=== PATIENT | female | born 2000 | race Two or more races ===

== ENCOUNTER 2024-05-15 13:42 | Outpatient (CLI) | payer OTHER | END 2024-05-15 13:43 | disposition home or self-care (01) | LOC: PRENATAL 13:42 | PROVIDERS: ATTEND Obstetrics & Gynecology Maternal & Fetal Medicine | DX: O36.80X0 Pregnancy with inconclusive fetal viability, not applicable or unspecified (principal); Z36.82 Encounter for antenatal screening for nuchal translucency; Z14.8 Genetic carrier of other disease; Z3A.12 12 weeks gestation of pregnancy ==

== ENCOUNTER → 2024-07-09 15:29 | Outpatient (CLI) | payer OTHER | END | disposition home or self-care (01) | LOC: PRENATAL 15:29 | PROVIDERS: ATTEND Obstetrics & Gynecology Maternal & Fetal Medicine | DX: O44.00 Complete placenta previa NOS or without hemorrhage, unspecified trimester (principal); Z3A.20 20 weeks gestation of pregnancy ==

== ENCOUNTER 2024-08-04 20:54 | Emergency (ER) | payer OTHER ==
[~2024-08-04] VITALS: Ht 160 cm; Wt 75.3 kg
[2024-08-05] MEDS ORDERED: ACETAMINOPHEN 500 MG GEL..CAP PO STA (01:34)
[2024-08-05] MEDS ORDERED: ACETAMINOPHEN 500 MG GEL..CAP PO ONE ×2 (01:39→05:03)
[2024-08-05 02:07] LABS: BASO % 0.5 % (0.1-1.2); EOS # 0.71 (0.04-0.54); EOS % 6.2 % (0.7-7.0); HEMATOCRIT 32.4 % (34.1-44.9); HEMOGLOBIN 11.1 g/dL (11.2-15.7); LYMPH # 1.95 (1.18-3.74); LYMPH % 16.9 % (19.3-53.1); MEAN CORPUSCULAR HEMOGLOBIN 31.6 pg (25.6-32.2); MONO # 0.66 (0.24-0.82); MONO % 5.7 % (4.7-12.5); NEUT # 8.07 (1.56-6.13); NEUT % 69.9 % (34.0-71.1); PLATELET COUNT 154 K/uL (163-369); RED BLOOD COUNT 3.51 M/uL (3.93-5.22); RED CELL DISTRIBUTION WIDTH 12.9 % (11.6-14.4)
[2024-08-05 02:29] LABS: CALCIUM 8.3 mg/dL (8.5-10.1); CREATININE SERUM 0.36 mg/dL (0.55-1.02); GFR 217.89; POTASSIUM 3.86 mEq/L (3.5-5.1)
[2024-08-05 03:12] LABS: PH,URINE 6.5 (5.0-8.0); URINE APPEARANCE Clear; URINE BILIRRUBIN Negative (NEGATIVE); URINE BLOOD Negative; URINE COLOR Yellow; URINE GLUCOSE Negative (NEGATIVE); URINE KETONE Negative (NEGATIVE); URINE LEUKOCYTE Trace; URINE NITRATE Negative; URINE PROTEIN Negative (NEGATIVE)
[2024-08-05 03:16] LABS: URINE BACTERIA 3729.3 uL (0.0-1933); URINE WBC 51.4 uL (0.0-23.2)
[2024-08-05 03:46] LABS: URINE CAST 0.29 uL (0.0-1.40); URINE RBC 1.7 uL (0.0-20.8)
[2024-08-05] MEDS ORDERED: CEFTRIAXONE SODIUM 1,000 MG VIAL IM STA (05:01)
[2024-08-05] MEDS ORDERED: CEFTRIAXONE SODIUM 1,000 MG VIAL ONE (05:03)
[2024-08-05] MEDS ORDERED: CEPHALEXIN500 MG PO (05:03)
== END 2024-08-05 05:07 ==
LOC: ER 21:19
PROVIDERS: General Practice
DX: Z34.90 Encounter for supervision of normal pregnancy, unspecified, unspecified trimester (principal); Z3A.23 23 weeks gestation of pregnancy; N39.0 Urinary tract infection, site not specified; R51.9 Headache, unspecified

== ENCOUNTER → 2024-10-05 13:56 | Outpatient (CLI) | payer OTHER ==
[~2024-10-05 13:56] MED LIST: CEPHALEXIN500 MG PO
== END | disposition home or self-care (01) ==
LOC: PRENATAL 13:56
PROVIDERS: ATTEND Obstetrics & Gynecology Maternal & Fetal Medicine
DX: O26.849 Uterine size-date discrepancy, unspecified trimester (principal); O36.8199 Decreased fetal movements, unspecified trimester, other fetus; Z3A.32 32 weeks gestation of pregnancy

== ENCOUNTER 2024-11-18 17:07 | Inpatient (IN) | payer OTHER ==
[~2024-11-18] VITALS: Ht 160 cm; Wt 88.9 kg
[2024-11-18 16:09] VITALS: BP 150/88
[2024-11-18] MEDS ORDERED: PRENATABS RX T1 EACH PO (17:42)
[2024-11-18] MEDS ORDERED: RINGERS SOLUTION,LACTATED 1,000 ML IV SCH (17:45)
[2024-11-18 18:09] LABS: BASO % 0.6 % (0.1-1.2); EOS # 0.30 (0.04-0.54); EOS % 2.8 % (0.7-7.0); LYMPH # 1.43 (1.18-3.74); LYMPH % 13.2 % (19.3-53.1); MEAN PLATELET VOLUME 14.10 fl (9.4-12.4); MONO # 0.72 (0.24-0.82); MONO % 6.7 % (4.7-12.5); NEUT # 8.23 (1.56-6.13); NEUT % 76.2 % (34.0-71.1); RED CELL DISTRIBUTION WIDTH 13.2 % (11.6-14.4)
[2024-11-18 18:36] LABS: ALT/SGPT 19.0 U/L (12-78); AST/SGOT 20.0 U/L (15-37); BILIRUBIN TOTAL 0.48 mg/dL (0.3-1.2); BUN CREA RATIO 16.0 (7.0-25.0); CREATININE SERUM 0.61 mg/dL (0.55-1.02); GFR 118.56; GLOBULINA 3.1 G/DL (2.4-3.5); GLUCOSE FASTING 67.0 mg/dL (65-100); OSMOLALITY SERUM 277.0 MOSM/KG (275-295)
[2024-11-18 18:51] LABS: URINE APPEARANCE Clear; URINE BILIRRUBIN Small (NEGATIVE); URINE BLOOD Negative; URINE COLOR Dark Yellow; URINE GLUCOSE Negative (NEGATIVE); URINE LEUKOCYTE Trace; URINE NITRATE Negative; URINE UROBILINOGEN 1.0 E.U./dl
[2024-11-18 18:52] LABS: URINE BACTERIA 1612.7 uL (0.0-1933); URINE EPITHELIAL CELLS 43.1 uL (0.0-38.8); URINE RBC 9.6 uL (0.0-20.8); URINE WBC 10.2 uL (0.0-23.2)
[2024-11-18 19:04] LABS: URINE CAST 1.31 uL (0.0-1.40); URINE KETONE 40 (NEGATIVE); URINE PROTEIN 300 (NEGATIVE)
[2024-11-18 19:39] VITALS: BP 144/89
[2024-11-18 23:44] VITALS: BP 130/77
[2024-11-19] VITALS (7 sets, daily range): BP systolic 122–147; BP diastolic 79–89; O2SAT 99
[2024-11-19] MEDS ORDERED: MISOPROSTOL 25 MCG/4 ML GEL.W.APPL VAG STA ×2 (16:46→22:12)
[2024-11-20] VITALS (9 sets, daily range): BP systolic 123–151; BP diastolic 70–90; O2SAT 98
[2024-11-20] MEDS ORDERED: MORPHINE SULFATE 4 MG/ML CARTRIDGE IV ONE (05:15)
[2024-11-20] MEDS ORDERED: MORPHINE SULFATE 4 MG/ML CARTRIDGE IV STA (08:53)
[2024-11-20] MEDS ORDERED: OXYTOCIN 500 ML IV SCH (09:00)
[2024-11-20] MEDS ORDERED: CHLORHEXIDINE GLUCONATE 120 ML BOTTLE TOP ONE (13:15)
[2024-11-20] MEDS ORDERED: OXYTOCIN 10 UNITS/ML VIAL IM STA (13:15)
[2024-11-20] MEDS ORDERED: OXYTOCIN 1,000 ML IV SCH (13:15)
[2024-11-20 16:07] LABS: BASO % 0.2 % (0.1-1.2); EOS # 0.03 (0.04-0.54); EOS % 0.1 % (0.7-7.0); LYMPH # 0.53 (1.18-3.74); LYMPH % 1.7 % (19.3-53.1); MEAN PLATELET VOLUME 13.50 fl (9.4-12.4); MONO # 1.71 (0.24-0.82); MONO % 5.5 % (4.7-12.5); NEUT # 28.52 (1.56-6.13); NEUT % 91.4 % (34.0-71.1); RED CELL DISTRIBUTION WIDTH 13.3 % (11.6-14.4)
[2024-11-21] VITALS: BP 126/78
[2024-11-21 10:11] VITALS: BP 140/88; BP 96/60
[2024-11-21 16:00] VITALS: BP 124/80
[2024-11-21 20:00] VITALS: BP 144/92
[2024-11-22] VITALS: BP 140/82
[2024-11-22 04:00] VITALS: BP 140/90
[2024-11-22 08:00] VITALS: BP 138/87
== END 2024-11-22 15:48 | disposition home or self-care (01) | DRG 807 ==
LOC: OBS/DEL 17:07 → LDR 11-19 13:31 → OB/GYN 11-20 13:25
PROVIDERS: ADMIT Obstetrics & Gynecology; ATTEND Obstetrics & Gynecology
PROC: 3E0P7VZ Introduction of Hormone into Female Reproductive, Via Natural or Artificial Opening (ICD-10-PCS; 2024-11-19)
PROC: 4A1HXCZ Monitoring of Products of Conception, Cardiac Rate, External Approach (ICD-10-PCS; 2024-11-19)
PROC: 10E0XZZ Delivery of Products of Conception, External Approach (ICD-10-PCS; principal; 2024-11-20)
PROC: 0KQM0ZZ Repair Perineum Muscle, Open Approach (ICD-10-PCS; 2024-11-20)
PROC: 3E033VJ Introduction of Other Hormone into Peripheral Vein, Percutaneous Approach (ICD-10-PCS; 2024-11-20)
DX: O70.1 Second degree perineal laceration during delivery (principal); Z37.0 Single live birth; Z3A.39 39 weeks gestation of pregnancy

== ENCOUNTER 2024-11-23 23:25 | Emergency (ER) | payer OTHER ==
[~2024-11-23] VITALS: Ht 160 cm; Wt 85.3 kg
[~2024-11-23 23:25] MED LIST changes: +PRENATABS RX T1 EACH PO
[2024-11-24] MEDS ORDERED: 0.9 % SODIUM CHLORIDE 1,000 ML IV STA (00:29)
[2024-11-24] MEDS ORDERED: LABETALOL HCL 20MG/4ML SYRINGE IV STA ×3 (00:30→04:52)
[2024-11-24 01:09] LABS: BASO % 0.8 % (0.1-1.2); EOS # 0.65 (0.04-0.54); EOS % 6.1 % (0.7-7.0); LYMPH # 1.65 (1.18-3.74); LYMPH % 15.6 % (19.3-53.1); MEAN PLATELET VOLUME 12.00 fl (9.4-12.4); MONO # 0.55 (0.24-0.82); MONO % 5.2 % (4.7-12.5); NEUT # 7.54 (1.56-6.13); NEUT % 71.4 % (34.0-71.1); RED CELL DISTRIBUTION WIDTH 13.6 % (11.6-14.4)
[2024-11-24 01:42] LABS: URINE APPEARANCE Clear; URINE BILIRRUBIN Negative (NEGATIVE); URINE BLOOD Large; URINE COLOR Yellow; URINE GLUCOSE Negative (NEGATIVE); URINE KETONE Negative (NEGATIVE); URINE LEUKOCYTE Small; URINE NITRATE Negative; URINE UROBILINOGEN 1.0 E.U./dl
[2024-11-24 01:46] LABS: URINE BACTERIA 106.7 uL (0.0-1933); URINE EPITHELIAL CELLS 11.0 uL (0.0-38.8); URINE RBC 166.6 uL (0.0-20.8); URINE WBC 160.4 uL (0.0-23.2)
[2024-11-24 01:48] LABS: URINE CAST 0.14 uL (0.0-1.40); URINE PROTEIN 100 (NEGATIVE)
[2024-11-24 02:01] LABS: ALT/SGPT 36.0 U/L (12-78); AST/SGOT 40.0 U/L (15-37); BILIRUBIN TOTAL 0.55 mg/dL (0.3-1.2); BILIRUBIN,CONJUGATED 0.16 mg/dL (0.0-0.2); BUN CREA RATIO 22.0 (7.0-25.0); GFR 136.47; GLOBULINA 3.8 G/DL (2.4-3.5); GLUCOSE FASTING 79.0 mg/dL (65-100); OSMOLALITY SERUM 282.0 MOSM/KG (275-295)
[2024-11-24 02:03] LABS: CREATININE SERUM 0.54 mg/dL (0.55-1.02)
[2024-11-24] MEDS ORDERED: MAGNESIUM SULFATE IN WATER 50 ML IV ONE (02:15)
[2024-11-24] MEDS ORDERED: hydrALAZINE HCL 20 MG VIAL IV STA (07:09)
[2024-11-24] MEDS ORDERED: LABETALOL HCL 200 MG/40 ML VIAL IV ONE (08:30)
[2024-11-24] MEDS ORDERED: LOSARTAN POTASSIUM 25 MG TABLET PO ONE (08:30)
== END 2024-11-24 09:06 | disposition home or self-care (01) ==
LOC: ER 23:35
DX: O14.95 Unspecified pre-eclampsia, complicating the puerperium (principal)